=== PATIENT | female | born 1960 | race African-American/Black ===

== ENCOUNTER 2020-10-07 10:48 | Emergency (ER) | payer MEDICARE, OTHER ==
[~2020-10-07] VITALS: Ht 162.6 cm; Wt 59.0 kg
[2020-10-07] MEDS ORDERED: LIDOCAINE HCL/EPINEPHRINE 1%-EPI 1:100,000 20 ML VIAL INFIL ONE (11:15)
[2020-10-07] MEDS ORDERED: BACITRACIN ZINC OINT UDPKT TOP ONE (11:15)
[2020-10-07] MEDS ORDERED: TETANUS, DIPHTHERIA, PERTUSSIS VAC/PF 0.5ML (>7YR OLD) IM ONE (11:15)
[2020-10-07 12:10] VITALS: BP 111/61
== END 2020-10-07 12:16 | disposition home or self-care (01) ==
LOC: ER 10:48
DX: S51.812A Laceration without foreign body of left forearm, initial encounter (principal); F41.9 Anxiety disorder, unspecified; Z88.5 Allergy status to narcotic agent; Z88.0 Allergy status to penicillin; X99.1XXA Assault by knife, initial encounter; Y07.411 Sister, perpetrator of maltreatment and neglect; Y93.89 Activity, other specified; Y92.018 Other place in single-family (private) house as the place of occurrence of the external cause
CPT/HCPCS: 12001; 90471; 90715; 99283; J3490

== ENCOUNTER 2020-10-07 22:15 | Emergency (ER) | payer MEDICARE, OTHER ==
[~2020-10-07] VITALS: Ht 170.2 cm; Wt 65.0 kg
[2020-10-07 23:16] VITALS: BP 148/72
== END 2020-10-08 01:36 | disposition home or self-care (01) ==
LOC: ER 22:15
DX: T81.30XA Disruption of wound, unspecified, initial encounter (principal); S51.812A Laceration without foreign body of left forearm, initial encounter; Z88.0 Allergy status to penicillin; Z88.6 Allergy status to analgesic agent; Z88.8 Allergy status to other drugs, medicaments and biological substances; X99.1XXA Assault by knife, initial encounter; Y93.89 Activity, other specified; Y92.89 Other specified places as the place of occurrence of the external cause; Y99.8 Other external cause status
CPT/HCPCS: 12001; 99282; J3490; 90471; 90715; 99283